=== PATIENT | male | born 1995 | race Caucasian/White ===

== ENCOUNTER 2016-12-21 22:21 | Emergency (ER) | payer BC, OTHER ==
[~2016-12-21] VITALS: Ht 160 cm; Wt 66.7 kg
[2016-12-21 23:52] VITALS: BP 146/88
[2016-12-22] MEDS ORDERED: NEOMYCIN-BACITRACIN-POLYM UNITDOSE PKG TOP OINT TOP ONE
[2016-12-22] MEDS ORDERED: LIDOCAINE 1% HCL (LOCAL ANESTH.) INJ 20ML MDV IJ ONE
== END 2016-12-22 01:02 | disposition home or self-care (01) ==
LOC: ER 22:27
DX: S61.411A Laceration without foreign body of right hand, initial encounter (principal); W25.XXXA Contact with sharp glass, initial encounter; Y93.89 Activity, other specified; Y92.89 Other specified places as the place of occurrence of the external cause; Y99.8 Other external cause status
CPT/HCPCS: 12002; 99283; J2001